=== PATIENT | female | born 1945 | race Caucasian/White ===

== ENCOUNTER 2021-03-26 11:56 | Inpatient (IN) ==
[2021-03-26] MEDS ORDERED: Ondansetron 4 MG/2 ML VIAL IVP PRN (17:31)
[2021-03-26] MEDS ORDERED: Acetaminophen 325 MG TABLET PO PRN (17:31)
[2021-03-26] MEDS ORDERED: Ipratropium 1 PUFF INHALER IH PRN (17:34)
[2021-03-26] MEDS ORDERED: Nicotine 2 MG GUM BC PRN (17:34)
[2021-03-26] MEDS ORDERED: Remdesivir 200 MG in 0.9 % Sodium Chloride 100 ML IVPB ONE (18:00)
[2021-03-26] MEDS: Nicotine 14 MG PATCH.TD24 TD SCH (20:20)
[2021-03-26] MEDS: Ipratropium 1 PUFF INHALER IH SCH (22:59)
[2021-03-27] MEDS: Ipratropium 1 PUFF INHALER IH SCH ×4 (04:28→20:53)
[2021-03-27] MEDS ORDERED: Apixaban 5 MG TABLET PO SCH (09:00)
[2021-03-27] MEDS ORDERED: Dexamethasone Sodium Phos/PF 10 MG/ML VIAL IVP SCH (09:00)
[2021-03-27] MEDS: Nicotine 14 MG PATCH.TD24 TD SCH (09:18)
[2021-03-27] MEDS: Apixaban 5 MG TABLET PO SCH ×2 (09:18→20:55)
[2021-03-27] MEDS: Dexamethasone Sodium Phos/PF 10 MG/ML VIAL IVP SCH (09:19)
[2021-03-27] MEDS: Furosemide 40 MG/4 ML VIAL IVP SCH (09:19)
[2021-03-27] MEDS ORDERED: Levalbuterol 1 PUFF INHALER IH SCH (10:00)
[2021-03-27 10:11] LABS: Hematocrit 40.6 % (35.3-44.9); Hemoglobin 13.5 g/dL (11.5-15.4); Mean Corpuscular HGB Conc 33.3 g/dL (31.6-35.5); Mean Corpuscular Hemoglobin 33.7 pg (28.0-33.3); Mean Corpuscular Volume 101.2 fL (83.0-100.0); Mean Platelet Volume 11.2 fL (9.4-12.4); Platelet Count 126 K/mcL (140-400); Red Blood Count 4.01 M/mcL (3.82-4.97)
[2021-03-27 10:30] LABS: Alanine Aminotransferase 13 Units/L (7-52); Albumin 3.4 g/dL (3.5-5.7); Albumin/Globulin Ratio 1.2 (1.1-2.2); Alkaline Phosphatase 71 Units/L (34-104); Aspartate Amino Transferase 21 Units/L (13-39); BUN/Creatinine Ratio 37 (6-26); Bilirubin,Total 0.5 mg/dL (0.3-1.0); Blood Urea Nitrogen 23 mg/dL (8-23); Calcium 9.2 mg/dL (8.6-10.3); Carbon Dioxide 34 mEq/L (23-29); Chloride 98 mEq/L (98-107); Globulin 2.9 g/dL (2.4-3.5); Glucose 172 mg/dL (70-105); Magnesium 1.8 mg/dL (1.6-2.6); Osmolality,Calculated 298 (280-300); Potassium 3.9 mEq/L (3.5-5.1); Sodium 140 mEq/L (136-145); Total Protein 6.3 g/dL (6.4-8.9); eGFR For African Americans > 60 (> 60); eGFR For Non-African Americans > 60 (> 60)
[2021-03-27] MEDS: Remdesivir 100 MG in 0.9 % Sodium Chloride 100 ML IVPB SCH (17:21)
[2021-03-28] MEDS: Ipratropium 1 PUFF INHALER IH SCH ×4 (04:01→19:58)
[2021-03-28 06:24] LABS: Alanine Aminotransferase 13 Units/L (7-52); Albumin 3.4 g/dL (3.5-5.7); Albumin/Globulin Ratio 1.2 (1.1-2.2); Alkaline Phosphatase 70 Units/L (34-104); Aspartate Amino Transferase 19 Units/L (13-39); BUN/Creatinine Ratio 44 (6-26); Bilirubin,Total 0.5 mg/dL (0.3-1.0); Blood Urea Nitrogen 28 mg/dL (8-23); Calcium 9.1 mg/dL (8.6-10.3); Carbon Dioxide 36 mEq/L (23-29); Chloride 98 mEq/L (98-107); Globulin 2.9 g/dL (2.4-3.5); Glucose 142 mg/dL (70-105); Osmolality,Calculated 300 (280-300); Potassium 3.7 mEq/L (3.5-5.1); Sodium 141 mEq/L (136-145); Total Protein 6.3 g/dL (6.4-8.9); eGFR For African Americans > 60 (> 60); eGFR For Non-African Americans > 60 (> 60)
[2021-03-28] MEDS: Dexamethasone Sodium Phos/PF 10 MG/ML VIAL IVP SCH (08:57)
[2021-03-28] MEDS: Apixaban 5 MG TABLET PO SCH ×2 (08:58→20:40)
[2021-03-28] MEDS: Nicotine 14 MG PATCH.TD24 TD SCH (08:59)
[2021-03-28] MEDS: Furosemide 40 MG/4 ML VIAL IVP SCH (09:00)
[2021-03-28] MEDS: Remdesivir 100 MG in 0.9 % Sodium Chloride 100 ML IVPB SCH (17:30)
[2021-03-29 01:23] LABS: Hemoglobin 13.4 g/dL (11.5-15.4); Mean Corpuscular HGB Conc 31.9 g/dL (31.6-35.5); Mean Corpuscular Hemoglobin 32.4 pg (28.0-33.3); Mean Corpuscular Volume 101.4 fL (83.0-100.0); Mean Platelet Volume 10.7 fL (9.4-12.4); Platelet Count 154 K/mcL (140-400); Red Blood Count 4.14 M/mcL (3.82-4.97); White Blood Count 6.2 K/mcL (4.3-11.1)
[2021-03-29 01:38] LABS: Alanine Aminotransferase 13 Units/L (7-52); Albumin 3.1 g/dL (3.5-5.7); Alkaline Phosphatase 60 Units/L (34-104); Aspartate Amino Transferase 16 Units/L (13-39); BUN/Creatinine Ratio 42 (6-26); Bilirubin,Total 0.6 mg/dL (0.3-1.0); Blood Urea Nitrogen 23 mg/dL (8-23); Carbon Dioxide 37 mEq/L (23-29); Chloride 99 mEq/L (98-107); Glucose 136 mg/dL (70-105); Osmolality,Calculated 300 (280-300); Potassium 4.2 mEq/L (3.5-5.1); Sodium 142 mEq/L (136-145); Total Protein 6.1 g/dL (6.4-8.9); eGFR For African Americans > 60 (> 60); eGFR For Non-African Americans > 60 (> 60)
[2021-03-29] MEDS: Ipratropium 1 PUFF INHALER IH SCH ×4 (02:53→20:32)
[2021-03-29] MEDS: Dexamethasone Sodium Phos/PF 10 MG/ML VIAL IVP SCH (08:26)
[2021-03-29] MEDS: Furosemide 40 MG/4 ML VIAL IVP SCH (08:26)
[2021-03-29] MEDS: Nicotine 14 MG PATCH.TD24 TD SCH (08:27)
[2021-03-29] MEDS: Apixaban 5 MG TABLET PO SCH ×2 (08:28→21:08)
[2021-03-29] MEDS: Cholecalciferol (D-3) 1,000 UNIT (25MCG) TABLET PO SCH (08:28)
[2021-03-29] MEDS: Dexamethasone Sodium Phos/PF 10 MG/ML VIAL IVP ONE ×2 (16:50→17:22)
[2021-03-29] MEDS: Remdesivir 100 MG in 0.9 % Sodium Chloride 100 ML IVPB SCH (17:22)
[2021-03-30 02:58] LABS: Alanine Aminotransferase 13 Units/L (7-52); Albumin 3.2 g/dL (3.5-5.7); Alkaline Phosphatase 60 Units/L (34-104); Aspartate Amino Transferase 13 Units/L (13-39); BUN/Creatinine Ratio 47 (6-26); Bilirubin,Direct 0.2 mg/dL (0.0-0.2); Bilirubin,Indirect 0.4 mg/dL (0.0-1.0); Bilirubin,Total 0.6 mg/dL (0.3-1.0); Blood Urea Nitrogen 27 mg/dL (8-23); Calcium 9.2 mg/dL (8.6-10.3); Carbon Dioxide 39 mEq/L (23-29); Chloride 99 mEq/L (98-107); Globulin 3.1 g/dL (2.4-3.5); Glucose 171 mg/dL (70-105); Osmolality,Calculated 309 (280-300); Potassium 4.1 mEq/L (3.5-5.1); Sodium 145 mEq/L (136-145); Total Protein 6.3 g/dL (6.4-8.9); eGFR For African Americans > 60 (> 60); eGFR For Non-African Americans > 60 (> 60)
[2021-03-30] MEDS: Ipratropium 1 PUFF INHALER IH SCH ×4 (04:13→21:07)
[2021-03-30] MEDS: Apixaban 5 MG TABLET PO SCH ×2 (07:52→19:42)
[2021-03-30] MEDS: Nicotine 14 MG PATCH.TD24 TD SCH (07:54)
[2021-03-30] MEDS: Dexamethasone Sodium Phos/PF 10 MG/ML VIAL IVP SCH (07:55)
[2021-03-30] MEDS: Cholecalciferol (D-3) 1,000 UNIT (25MCG) TABLET PO SCH (07:55)
[2021-03-30] MEDS: Furosemide 40 MG/4 ML VIAL IVP SCH (07:56)
[2021-03-30] MEDS: Remdesivir 100 MG in 0.9 % Sodium Chloride 100 ML IVPB SCH (17:19)
[2021-03-31] MEDS: Ipratropium 1 PUFF INHALER IH SCH ×4 (03:37→20:17)
[2021-03-31 07:28] LABS: Basophils % 0.4 %; Hematocrit 45.7 % (35.3-44.9); Hemoglobin 14.2 g/dL (11.5-15.4); Immature Granulocytes % 1.3 % (0-4); Lymphocytes # 0.5 K/mcL (0.6-4.6); Lymphocytes % 6.1 %; Mean Corpuscular HGB Conc 31.1 g/dL (31.6-35.5); Mean Corpuscular Hemoglobin 32.3 pg (28.0-33.3); Mean Corpuscular Volume 103.9 fL (83.0-100.0); Mean Platelet Volume 10.7 fL (9.4-12.4); Monocytes % 12.3 %; Neutrophils # 6.3 K/mcL (1.6-8.9); Platelet Count 193 K/mcL (140-400); Red Cell Distribution Width 13.6 % (11.5-14.5); Segmented Neutrophils % 79.9 %; White Blood Count 7.8 K/mcL (4.3-11.1)
[2021-03-31 07:59] LABS: Alanine Aminotransferase 14 Units/L (7-52); Albumin 3.3 g/dL (3.5-5.7); Albumin/Globulin Ratio 1.2 (1.1-2.2); Alkaline Phosphatase 63 Units/L (34-104); Aspartate Amino Transferase 14 Units/L (13-39); BUN/Creatinine Ratio 50 (6-26); Bilirubin,Total 0.7 mg/dL (0.3-1.0); Blood Urea Nitrogen 32 mg/dL (8-23); Calcium 9.3 mg/dL (8.6-10.3); Carbon Dioxide 38 mEq/L (23-29); Chloride 98 mEq/L (98-107); Ferritin 821 ng/mL (10-120); Globulin 2.8 g/dL (2.4-3.5); Glucose 111 mg/dL (70-105); Lactate Dehydrogenase 200 Units/L (140-271); Osmolality,Calculated 308 (280-300); Sodium 145 mEq/L (136-145); Total Protein 6.1 g/dL (6.4-8.9); eGFR For African Americans > 60 (> 60); eGFR For Non-African Americans > 60 (> 60)
[2021-03-31] MEDS: Furosemide 40 MG/4 ML VIAL IVP SCH (07:59)
[2021-03-31] MEDS: Dexamethasone Sodium Phos/PF 10 MG/ML VIAL IVP SCH (07:59)
[2021-03-31] MEDS: Apixaban 5 MG TABLET PO SCH ×2 (08:00→22:00)
[2021-03-31] MEDS: Nicotine 14 MG PATCH.TD24 TD SCH (08:00)
[2021-03-31] MEDS: Cholecalciferol (D-3) 1,000 UNIT (25MCG) TABLET PO SCH (08:00)
[2021-03-31 13:59] LABS: C-Reactive Protein 59 mg/L (Less than 10)
[2021-04-01] MEDS: Ipratropium 1 PUFF INHALER IH SCH ×4 (04:10→23:28)
[2021-04-01 06:17] LABS: Basophils % 0.5 %; Eosinophils % 0.1 %; Hematocrit 46.7 % (35.3-44.9); Hemoglobin 14.6 g/dL (11.5-15.4); Lymphocytes # 0.5 K/mcL (0.6-4.6); Lymphocytes % 6.3 %; Mean Corpuscular HGB Conc 31.3 g/dL (31.6-35.5); Mean Corpuscular Hemoglobin 32.2 pg (28.0-33.3); Mean Corpuscular Volume 103.1 fL (83.0-100.0); Mean Platelet Volume 10.5 fL (9.4-12.4); Monocytes % 12.2 %; Neutrophils # 6.7 K/mcL (1.6-8.9); Platelet Count 193 K/mcL (140-400); Red Blood Count 4.53 M/mcL (3.82-4.97); Red Cell Distribution Width 13.4 % (11.5-14.5); Segmented Neutrophils % 78.9 %; White Blood Count 8.5 K/mcL (4.3-11.1)
[2021-04-01 06:43] LABS: BUN/Creatinine Ratio 50 (6-26); Blood Urea Nitrogen 35 mg/dL (8-23); Calcium 9.4 mg/dL (8.6-10.3); Carbon Dioxide 42 mEq/L (23-29); Chloride 96 mEq/L (98-107); Glucose 115 mg/dL (70-105); Osmolality,Calculated 303 (280-300); Sodium 142 mEq/L (136-145); eGFR For African Americans > 60 (> 60); eGFR For Non-African Americans > 60 (> 60)
[2021-04-01] MEDS: Cholecalciferol (D-3) 1,000 UNIT (25MCG) TABLET PO SCH (10:21)
[2021-04-01] MEDS: Furosemide 40 MG/4 ML VIAL IVP SCH (10:22)
[2021-04-01] MEDS: Apixaban 5 MG TABLET PO SCH ×2 (10:22→19:58)
[2021-04-01] MEDS: Dexamethasone Sodium Phos/PF 10 MG/ML VIAL IVP SCH (10:22)
[2021-04-01] MEDS: Nicotine 14 MG PATCH.TD24 TD SCH (10:22)
[2021-04-02] MEDS: Ipratropium 1 PUFF INHALER IH SCH ×4 (03:35→20:33)
[2021-04-02 06:29] LABS: Basophils % 0.3 %; Eosinophils % 0.4 %; Hematocrit 47.8 % (35.3-44.9); Hemoglobin 15.3 g/dL (11.5-15.4); Lymphocytes # 0.4 K/mcL (0.6-4.6); Lymphocytes % 4.4 %; Mean Corpuscular Hemoglobin 33.1 pg (28.0-33.3); Mean Corpuscular Volume 103.5 fL (83.0-100.0); Mean Platelet Volume 10.5 fL (9.4-12.4); Monocytes # 0.9 K/mcL (0.0-1.3); Monocytes % 9.8 %; Neutrophils # 7.6 K/mcL (1.6-8.9); Platelet Count 147 K/mcL (140-400); Red Blood Count 4.62 M/mcL (3.82-4.97); Red Cell Distribution Width 13.3 % (11.5-14.5); Segmented Neutrophils % 83.1 %; White Blood Count 9.1 K/mcL (4.3-11.1)
[2021-04-02 06:55] LABS: Alanine Aminotransferase 31 Units/L (7-52); Albumin 3.3 g/dL (3.5-5.7); Albumin/Globulin Ratio 1.3 (1.1-2.2); Alkaline Phosphatase 65 Units/L (34-104); Aspartate Amino Transferase 30 Units/L (13-39); BUN/Creatinine Ratio 47 (6-26); Bilirubin,Total 0.9 mg/dL (0.3-1.0); Blood Urea Nitrogen 33 mg/dL (8-23); Calcium 8.9 mg/dL (8.6-10.3); Carbon Dioxide 42 mEq/L (23-29); Chloride 96 mEq/L (98-107); Globulin 2.6 g/dL (2.4-3.5); Glucose 110 mg/dL (70-105); Osmolality,Calculated 304 (280-300); Potassium 3.9 mEq/L (3.5-5.1); Sodium 143 mEq/L (136-145); Total Protein 5.9 g/dL (6.4-8.9); eGFR For African Americans > 60 (> 60); eGFR For Non-African Americans > 60 (> 60)
[2021-04-02] MEDS: Apixaban 5 MG TABLET PO SCH ×2 (09:17→21:25)
[2021-04-02] MEDS: Nicotine 14 MG PATCH.TD24 TD SCH (09:17)
[2021-04-02] MEDS: Cholecalciferol (D-3) 1,000 UNIT (25MCG) TABLET PO SCH (09:17)
[2021-04-02] MEDS: Dexamethasone Sodium Phos/PF 10 MG/ML VIAL IVP SCH (10:47)
[2021-04-02] MEDS: Furosemide 40 MG/4 ML VIAL IVP SCH (10:48)
[2021-04-02] MEDS: Melatonin 3 MG TABLET PO PRN (21:25)
[2021-04-03 02:32] LABS: Basophils % 0.3 %; Eosinophils % 0.1 %; Hematocrit 46.7 % (35.3-44.9); Immature Granulocytes % 2.2 % (0-4); Lymphocytes # 0.5 K/mcL (0.6-4.6); Lymphocytes % 3.3 %; Mean Corpuscular HGB Conc 32.1 g/dL (31.6-35.5); Mean Corpuscular Hemoglobin 32.1 pg (28.0-33.3); Mean Platelet Volume 10.6 fL (9.4-12.4); Monocytes # 0.9 K/mcL (0.0-1.3); Monocytes % 6.1 %; Neutrophils # 12.6 K/mcL (1.6-8.9); Platelet Count 140 K/mcL (140-400); Red Blood Count 4.67 M/mcL (3.82-4.97); Red Cell Distribution Width 13.2 % (11.5-14.5); White Blood Count 14.3 K/mcL (4.3-11.1)
[2021-04-03 02:54] LABS: Alanine Aminotransferase 34 Units/L (7-52); Albumin 3.4 g/dL (3.5-5.7); Albumin/Globulin Ratio 1.3 (1.1-2.2); Alkaline Phosphatase 63 Units/L (34-104); Aspartate Amino Transferase 24 Units/L (13-39); Blood Urea Nitrogen 32 mg/dL (8-23); Calcium 9.2 mg/dL (8.6-10.3); Carbon Dioxide 40 mEq/L (23-29); Chloride 93 mEq/L (98-107); Globulin 2.7 g/dL (2.4-3.5); Glucose 145 mg/dL (70-105); Osmolality,Calculated 299 (280-300); Potassium 4.4 mEq/L (3.5-5.1); Sodium 140 mEq/L (136-145); Total Protein 6.1 g/dL (6.4-8.9)
[2021-04-03 03:37] LABS: BUN/Creatinine Ratio 41 (6-26); eGFR For African Americans > 60 (> 60); eGFR For Non-African Americans > 60 (> 60)
[2021-04-03] MEDS: Ipratropium 1 PUFF INHALER IH SCH ×4 (04:59→20:13)
[2021-04-03] MEDS: Dexamethasone Sodium Phos/PF 10 MG/ML VIAL IVP SCH (07:40)
[2021-04-03] MEDS: Nicotine 14 MG PATCH.TD24 TD SCH (07:40)
[2021-04-03] MEDS: Cholecalciferol (D-3) 1,000 UNIT (25MCG) TABLET PO SCH (07:41)
[2021-04-03] MEDS: Apixaban 5 MG TABLET PO SCH ×2 (07:41→21:25)
[2021-04-03] MEDS: Melatonin 3 MG TABLET PO PRN (21:25)
[2021-04-04] MEDS: Ipratropium 1 PUFF INHALER IH SCH ×4 (04:32→20:15)
[2021-04-04 06:58] LABS: Basophils % 0.2 %; Eosinophils % 0.2 %; Hemoglobin 15.4 g/dL (11.5-15.4); Lymphocytes % 1.7 %; Red Cell Distribution Width 13.2 % (11.5-14.5)
[2021-04-04 07:01] LABS: Hematocrit 47.3 % (35.3-44.9); Immature Granulocytes % 1.5 % (0-4); Immature Platelets 7.7 % (1.1-6.1); Lymphocytes # 0.3 K/mcL (0.6-4.6); Mean Corpuscular HGB Conc 32.6 g/dL (31.6-35.5); Mean Corpuscular Hemoglobin 32.6 pg (28.0-33.3); Mean Corpuscular Volume 100.2 fL (83.0-100.0); Mean Platelet Volume 11.1 fL (9.4-12.4); Monocytes # 1.3 K/mcL (0.0-1.3); Monocytes % 6.5 %; Neutrophils # 18.1 K/mcL (1.6-8.9); Platelet Count 107 K/mcL (140-400); Red Blood Count 4.72 M/mcL (3.82-4.97); Segmented Neutrophils % 89.9 %; White Blood Count 20.1 K/mcL (4.3-11.1)
[2021-04-04 07:22] LABS: Alanine Aminotransferase 34 Units/L (7-52); Albumin 3.4 g/dL (3.5-5.7); Albumin/Globulin Ratio 1.4 (1.1-2.2); Alkaline Phosphatase 73 Units/L (34-104); Aspartate Amino Transferase 22 Units/L (13-39); BUN/Creatinine Ratio 40 (6-26); Bilirubin,Total 1.4 mg/dL (0.3-1.0); Blood Urea Nitrogen 33 mg/dL (8-23); Calcium 9.1 mg/dL (8.6-10.3); Carbon Dioxide 38 mEq/L (23-29); Chloride 91 mEq/L (98-107); Globulin 2.4 g/dL (2.4-3.5); Glucose 136 mg/dL (70-105); Lactate Dehydrogenase 218 Units/L (140-271); Osmolality,Calculated 297 (280-300); Potassium 3.9 mEq/L (3.5-5.1); Sodium 139 mEq/L (136-145); Total Protein 5.8 g/dL (6.4-8.9); eGFR For African Americans > 60 (> 60); eGFR For Non-African Americans > 60 (> 60)
[2021-04-04 07:37] LABS: Ferritin 1283 ng/mL (10-120)
[2021-04-04 09:24] LABS: C-Reactive Protein 12 mg/L (Less than 10)
[2021-04-04] MEDS ORDERED: *HR* Metoprolol 5 MG/5 ML VIAL IVP ONE (09:34)
[2021-04-04] MEDS: Cholecalciferol (D-3) 1,000 UNIT (25MCG) TABLET PO SCH (09:47)
[2021-04-04] MEDS: Apixaban 5 MG TABLET PO SCH ×2 (09:48→20:07)
[2021-04-04] MEDS: Dexamethasone Sodium Phos/PF 10 MG/ML VIAL IVP SCH (09:48)
[2021-04-04] MEDS: Nicotine 14 MG PATCH.TD24 TD SCH (09:48)
[2021-04-04] MEDS: Metoprolol XL (24 HR) Succ 25 MG TAB.ER.24H PO SCH ×2 (12:18→20:07)
[2021-04-04] MEDS ORDERED: *HR* Labetalol 20 MG/4 ML SYRINGE IVP ONE (17:52)
[2021-04-05 01:09] LABS: ABG Base Excess 9 mEq/L (-2 to 3); ABG HCO3 36 mEq/L (21-27); ABG Oxygen Saturation 88 % (95-98); ABG PCO2 53 mmHg (35-45); ABG PH 7.44 pH Units (7.32-7.45); ABG PO2 54 mmHg (85-104); ABG TCO2 38 mEq/L (20-26); Blood Gas Modality PAV
[2021-04-05 01:49] LABS: Basophils % 0.2 %; Eosinophils % 0.1 %; Hematocrit 48.1 % (35.3-44.9); Hemoglobin 15.9 g/dL (11.5-15.4); Immature Granulocytes % 1.5 % (0-4); Lymphocytes # 0.2 K/mcL (0.6-4.6); Lymphocytes % 0.9 %; Mean Corpuscular HGB Conc 33.1 g/dL (31.6-35.5); Mean Corpuscular Hemoglobin 32.8 pg (28.0-33.3); Mean Corpuscular Volume 99.2 fL (83.0-100.0); Mean Platelet Volume 11.6 fL (9.4-12.4); Monocytes # 1.1 K/mcL (0.0-1.3); Monocytes % 4.5 %; Neutrophils # 23.5 K/mcL (1.6-8.9); Red Blood Count 4.85 M/mcL (3.82-4.97); Red Cell Distribution Width 13.2 % (11.5-14.5); Segmented Neutrophils % 92.8 %; White Blood Count 25.3 K/mcL (4.3-11.1)
[2021-04-05 01:51] LABS: Basophils # 0.1 K/mcL (0.0-0.2); Platelet Count 81 K/mcL (140-400)
[2021-04-05 02:19] LABS: Alanine Aminotransferase 35 Units/L (7-52); Albumin 3.3 g/dL (3.5-5.7); Albumin/Globulin Ratio 1.3 (1.1-2.2); Alkaline Phosphatase 93 Units/L (34-104); Aspartate Amino Transferase 22 Units/L (13-39); BUN/Creatinine Ratio 36 (6-26); Bilirubin,Total 1.8 mg/dL (0.3-1.0); Blood Urea Nitrogen 31 mg/dL (8-23); Calcium 8.9 mg/dL (8.6-10.3); Carbon Dioxide 35 mEq/L (23-29); Chloride 90 mEq/L (98-107); Globulin 2.5 g/dL (2.4-3.5); Glucose 165 mg/dL (70-105); Osmolality,Calculated 290 (280-300); Potassium 4.2 mEq/L (3.5-5.1); Sodium 135 mEq/L (136-145); Total Protein 5.8 g/dL (6.4-8.9); eGFR For African Americans > 60 (> 60); eGFR For Non-African Americans > 60 (> 60)
[2021-04-05] MEDS: Ipratropium 1 PUFF INHALER IH SCH ×4 (03:30→19:36)
[2021-04-05] MEDS ORDERED: *HR* Metoprolol 5 MG/5 ML VIAL IVP ONE ×2 (05:52→11:37)
[2021-04-05] MEDS ORDERED: Nitroglycerin 0.4 MG TAB.SUBL SL ONE (05:56)
[2021-04-05] MEDS ORDERED: cefTRIAXone 1,000 MG in Water for inj. (sterile) 10 ML IVP SCH (09:00)
[2021-04-05] MEDS: Metoprolol XL (24 HR) Succ 25 MG TAB.ER.24H PO SCH ×2 (11:04→20:00)
[2021-04-05] MEDS: Apixaban 5 MG TABLET PO SCH ×2 (11:04→19:55)
[2021-04-05] MEDS: Cholecalciferol (D-3) 1,000 UNIT (25MCG) TABLET PO SCH (11:05)
[2021-04-05] MEDS: Azithromycin 250 MG TABLET PO SCH (11:07)
[2021-04-05] MEDS: Furosemide 20 MG/2 ML VIAL IVP SCH (11:09)
[2021-04-05] MEDS: Dexamethasone Sodium Phos/PF 10 MG/ML VIAL IVP SCH (11:09)
[2021-04-05] MEDS: Nicotine 14 MG PATCH.TD24 TD SCH (11:09)
[2021-04-05] MEDS ORDERED: *HR* LORazepam Oral Conc 2 MG/ML SL PRN (13:50)
[2021-04-05] MEDS: Morphine Sulfate Oral CONC 10 MG/0.5 ML ORAL.SYG SL PRN ×2 (14:43→19:56)
[2021-04-05] MEDS ORDERED: Levalbuterol 1 PUFF INHALER IH PRN (14:44)
[2021-04-05] MEDS: Levalbuterol 1 PUFF INHALER IH SCH ×2 (16:07→19:36)
[2021-04-05] MEDS: *HR* Metoprolol 5 MG/5 ML VIAL IVP PRN (17:43)
[2021-04-05] MEDS: Piperacillin/Tazobactam 3.375 GM in 0.9 % Sodium Chloride Mini Bag 100 ML IVPB SCH (17:44)
[2021-04-05] MEDS: *HR* LORazepam Oral Conc 2 MG/ML SL PRN (21:59)
[2021-04-06] MEDS: Piperacillin/Tazobactam 3.375 GM in 0.9 % Sodium Chloride Mini Bag 100 ML IVPB SCH ×2 (00:47→09:50)
[2021-04-06] MEDS: *HR* LORazepam Oral Conc 2 MG/ML SL PRN (02:57)
[2021-04-06] MEDS: Morphine Sulfate Oral CONC 10 MG/0.5 ML ORAL.SYG SL PRN ×2 (02:57→07:34)
[2021-04-06] MEDS: Ipratropium 1 PUFF INHALER IH SCH ×2 (03:50→07:56)
[2021-04-06] MEDS: Levalbuterol 1 PUFF INHALER IH SCH ×2 (03:52→07:58)
[2021-04-06 05:36] LABS: Hematocrit 48.1 % (35.3-44.9); Hemoglobin 15.5 g/dL (11.5-15.4); Immature Platelets 18.1 % (1.1-6.1); Mean Corpuscular HGB Conc 32.2 g/dL (31.6-35.5); Mean Corpuscular Hemoglobin 32.2 pg (28.0-33.3); Mean Corpuscular Volume 99.8 fL (83.0-100.0); Mean Platelet Volume 13.1 fL (9.4-12.4); Monocytes # 1.3 K/mcL (0.0-1.3); Red Blood Count 4.82 M/mcL (3.82-4.97); Red Cell Distribution Width 13.4 % (11.5-14.5)
[2021-04-06 05:53] LABS: Alanine Aminotransferase 25 Units/L (7-52); Albumin/Globulin Ratio 1.3 (1.1-2.2); Alkaline Phosphatase 95 Units/L (34-104); Aspartate Amino Transferase 17 Units/L (13-39); BUN/Creatinine Ratio 32 (6-26); Bilirubin,Total 2.8 mg/dL (0.3-1.0); Blood Urea Nitrogen 61 mg/dL (8-23); C-Reactive Protein 117 mg/L (Less than 10); Calcium 8.4 mg/dL (8.6-10.3); Carbon Dioxide 34 mEq/L (23-29); Chloride 90 mEq/L (98-107); Globulin 2.3 g/dL (2.4-3.5); Glucose 155 mg/dL (70-105); Lactate Dehydrogenase 248 Units/L (140-271); Osmolality,Calculated 298 (280-300); Potassium 4.5 mEq/L (3.5-5.1); Sodium 134 mEq/L (136-145); Total Protein 5.3 g/dL (6.4-8.9); eGFR For African Americans 31 (> 60); eGFR For Non-African Americans 26 (> 60)
[2021-04-06 06:11] LABS: Platelet Count 49 K/mcL (140-400); White Blood Count 33.4 K/mcL (4.3-11.1)
[2021-04-06 06:18] LABS: Neutrophils # 30.7 K/mcL (1.6-8.9); Platelet Estimate Decreased (Normal); Toxic Granulation Present (Not Present); Toxic Vacuolation Present (Not Present)
[2021-04-06 06:34] LABS: Ferritin > 1500 ng/mL (10-120)
[2021-04-06] MEDS ORDERED: 0.9 % Sodium Chloride 500 ML IVC ONE (07:16)
[2021-04-06] MEDS: Dexamethasone Sodium Phos/PF 10 MG/ML VIAL IVP SCH (07:34)
[2021-04-06] MEDS: *HR* Metoprolol 5 MG/5 ML VIAL IVP PRN (07:34)
[2021-04-06] MEDS: Azithromycin 250 MG TABLET PO SCH (07:35)
[2021-04-06] MEDS: Metoprolol XL (24 HR) Succ 25 MG TAB.ER.24H PO SCH (07:35)
[2021-04-06] MEDS: Cholecalciferol (D-3) 1,000 UNIT (25MCG) TABLET PO SCH (07:35)
[2021-04-06] MEDS: Apixaban 5 MG TABLET PO SCH (07:35)
[2021-04-06 07:43] VITALS: BP 75/41; TEMP 101.1
[2021-04-06] MEDS: Furosemide 20 MG/2 ML VIAL IVP SCH (09:50)
[2021-04-06] MEDS: Nicotine 14 MG PATCH.TD24 TD SCH (09:51)
[2021-04-06] MEDS ORDERED: Atropine 1% Opth Drops 100 DROP/5 ML BOTTLE SL PRN (10:23)
[2021-04-06] MEDS ORDERED: Haloperidol Lactate 5 MG/ML VIAL IVP PRN (10:24)
[2021-04-06] MEDS ORDERED: Morphine Sulfate 2 MG/ML SYRINGE IVP PRN (10:24)
[2021-04-06] MEDS: *HR* LORazepam 2 MG/ML VIAL IVP PRN ×2 (10:56→12:58)
[2021-04-06] MEDS: Morphine Sulfate 2 MG/ML SYRINGE IVP PRN ×4 (10:56→14:41)
[2021-04-06 13:39] VITALS: PULSE 108; O2SAT 49
== END 2021-04-06 17:33 | disposition expired | DRG 720 ==
LOC: 2NENU → SUATTDRO 16:17
PROVIDERS: ADMIT Family Medicine; ATTEND Internal Medicine